=== PATIENT | male | born 1980 | race Caucasian/White ===

== ENCOUNTER 2019-01-02 20:47 | Emergency (ER) | payer OTHER ==
[~2019-01-02] VITALS: Ht 175.3 cm; Wt 77.1 kg
[2019-01-02 22:07] LABS: URINE BILIRUBIN NEGATIVE (Negative); URINE BLOOD NEGATIVE (Negative); URINE CLARITY CLEAR; URINE COLOR YELLOW; URINE GLUCOSE-RANDOM NEGATIVE (Negative); URINE KETONES NEGATIVE (Negative); URINE LEUKOCYTES-REFLEX NEGATIVE (Negative); URINE NITRITE-REFLEX NEGATIVE (Negative); URINE PROTEIN NEGATIVE (Negative); URINE UROBILINOGEN 0.2 E.U./dl (0.2-1.0)
[2019-01-02] MEDS ORDERED: ZOVIRAX400 MG PO (22:11)
[2019-01-02] MEDS ORDERED: LIDOCAINE VISC100 ML TOP (22:11)
[2019-01-02] MEDS ORDERED: ACETAMINOPHEN-1 EAC1 PO (22:13)
[2019-01-02 22:50] VITALS: BP 116/64
== END 2019-01-02 22:50 | disposition home or self-care (01) ==
LOC: M.ERS 20:47
PROVIDERS: Physician Assistant
DX: R21 Rash and other nonspecific skin eruption (principal); F17.200 Nicotine dependence, unspecified, uncomplicated